=== PATIENT | female | born 1995 | race Caucasian/White ===

== ENCOUNTER 2017-06-21 02:20 | Emergency (ER) | payer BC ==
[~2017-06-21] VITALS: Ht 165.1 cm; Wt 63.6 kg
[~2017-06-21 02:20] MED LIST: IMPLANON68 MG; INDERAL 10MG10 MG PO; NO HOME MEDICATIONS; NORCO 325 MG-51 TAB PO; RITALIN10 MG PO
[2017-06-21 02:25] VITALS: BP 116/71; PULSE 102; TEMP 98.6
[2017-06-21] MEDS ORDERED: RITALIN 5MG5 MG/TAB PO (02:43)
[2017-06-21 03:09] LABS: TRICYCLIC ANTIDEPRESS URINE NEGATIVE
== END 2017-06-21 04:35 | disposition home or self-care (01) ==
LOC: COL.ER 02:20
PROVIDERS: Emergency Medicine
DX: F10.129 Alcohol abuse with intoxication, unspecified (principal); Y90.7 Blood alcohol level of 200-239 mg/100 ml
CPT/HCPCS: J7030

== ENCOUNTER 2019-03-29 23:59 | Inpatient (IN) | payer BC ==
[~2019-03-29] VITALS: Ht 157.5 cm; Wt 93.6 kg
[~2019-03-29 23:59] MED LIST changes: +RITALIN 5MG5 MG/TAB PO
[2019-03-30] VITALS (70 sets, daily range): BP systolic 97–140; BP diastolic 50–90; PULSE 63–133; TEMP 98.3–98.6
--- NOTE | 2019-03-30 | NUR ---
0005- Pt arrived on unit ambulatory escorted by significant other for scheduled induction. Pt changed into a gown. 0020- Pt denies any contractions, leaking of fluid, vaginal bleeding and reports normal movement. EFM and toco monitors placed. Vital signs WNL. Plan of care for labor induction reviewed. 0045- Consents reviewed and signed. 0110- IV started and labs obtained. 0130- Cytotec given per order. See EMAR for details.
[2019-03-30] MEDS ORDERED: PRENATAL (00:32)
[2019-03-30 01:56] LABS: BASO # 0.1 (0.0-0.2); BASO % 0.3 % (0.0-2.0); EOS # 0.1 (0.0-0.7); EOS % 0.7 % (0-4.0); GRAN # 11.1 (1.4-6.5); GRAN % 74.1 % (42.2-75.2); HEMOGLOBIN 11.7 g/dl (12.5-16.0); LYMPH # 2.7 (1.2-3.4); LYMPH % 18.1 % (20.0-51.0); MEAN CELL VOLUME 82 fl (80.0-100.0); MEAN CORPUSCULAR HEMOGLOBIN 28 pg (27.0-31.0); MEAN CORPUSCULAR HGB CONC 34 g/dl (33.0-37.0); MEAN PLATELET VOLUME 10.6 fl (7.4-10.4); MONO % 6.3 % (1.7-9.3); PLATELET COUNT 286 K/mm3 (130-400); RED BLOOD COUNT 4.24 M/mm3 (4.10-5.30); REDCELL DISTRIBUTION WIDTH-CV 13.9 % (11.5-14.5)
[2019-03-30 01:58] LABS: HEMATOCRIT 34.8 % (37.0-47.0)
--- NOTE | 2019-03-30 07:30 | NUR ---
Patient awake, RN at bedside to adjust monitors and review plan of care. Patient denies cramping or contractions, reports normal movement. Patient off monitors and up to bathroom.
--- NOTE | 2019-03-30 08:00 | NUR ---
Dr. Connor on unit, updated on patient assessment. Reviews FHR strip.
--- NOTE | 2019-03-30 08:10 | NUR ---
0810- Dr. Connor at bedside. Reviews FHR strip. Discussing plan of care for SVE and possible AROM. Patient agrees and denies questions. 0812- SVE per provider /. AROM by Dr. Connor for moderate amount of clear fluid. Pericare given, patient repositioned WL and updated on plan of care. Orders to start Pitocin at 0930 per protocol, patient may have epidural when desired. Call light in reach.
--- NOTE | 2019-03-30 11:55 | NUR ---
Dr. Connor at bedside. Reviews FHR strip and contraction pattern. SVE per provider 3-4//-2. Orders to continue Pitocin induction. Patient comfortable with epidural. Fregoso catheter placed per protocol. Patient repositioned WL and updated on plan of care.
--- NOTE | 2019-03-30 15:45 | NUR ---
1434 - late deceleration noted. Pt repositioned semi-fowlers, wedged left.
--- NOTE | 2019-03-30 17:55 | NUR ---
Dr. Connor at bedside, reviews FHR, no new orders at this time.
--- NOTE | 2019-03-30 19:52 | NUR ---
SVE complete and +2 station. Pt educated on pushing techniques, verbalized understanding. Pt positioned into footplates.
--- NOTE | 2019-03-30 20:48 | NUR ---
2000 - Initial push at this time. Pt pushing well with contractions. Fregoso catheter removed. 75 mL aleksandra urine. 2014 - Pt continues to push well with contractions. Late variable deceleration after push down to 90 bpm. Pt instructed not to push with next contraction. 2029 - Pt continues to push well with contractions. Continues to have recurrent late variable decelerations down to 90 bpm with spontaneous return to baseline. Dr. Connor called for delivery. 2043 - Dr. Connor gowned and gloved at perineum, nursery called to bedside. Pt continues to have late variable decelerations down to 90 bpm after pushes with spontaneous return to baseline. 2047 - Spontaneous vaginal delivery of viable infant girl. placed on mothers abdomen, care of infant assumed to Toby Hobbs RN. Cord clamped x [address] Connor, cut by FOB. Pitocin off. 2050 - Spontaneous delivery of intact placenta. Pitocin restarted at 333 mL/hr. Fundal massage started by this RN, firm and at umbilicus. Small amount of free flow noted with massage. 2099 - Second degree perineal laceration repaired by Dr. Connor. Fundus firm and at umbilicus, few, small clots with massage. 2114 - Straight cath by Dr. Connor. Pericare provided. New chux beneath patient. Ice pack to perineum. Pt positioned in bed for comfort. recovery started. See physician delivery note.
--- NOTE | 2019-03-30 23:30 | NUR ---
Pt able to lift and hold each leg off of bed for 5 seconds. Repositioned to sitting on edge of bed. Epidural catheter removed. Tip, smooth, blue, and intact. Pt able to ambulate to bathroom with stand by assistance. Once in bathroom patient states she feels like she is going to pass out and throw up. Additional staff called to bathroom. After a few minutes patient states she is feeling better. Pt unable to void. Moved to wheelchair and transferred to room 208 with belongings. Once in room patient states she feels much better. Assisted to bed and encouraged to rest for awhile. Educated patient to stay in bed and ask for assistance when using restroom.
[2019-03-31 04:22] VITALS: BP 118/61; PULSE 91; TEMP 97.7
[2019-03-31] MEDS ORDERED: MOTRIN 800800 MG/TAB PO (07:53)
[2019-03-31] MEDS ORDERED: PERCOCET 325 MG1 TA2 PO (07:53)
[2019-03-31 08:30] VITALS: BP 124/64; PULSE 100; TEMP 97.6
--- NOTE | 2019-03-31 08:30 | NUR ---
Rests in bed, alert. Request pain medication. Let her know that it is to soon for pain medication, but will bring it when time.
[2019-03-31 13:30] VITALS: BP 129/53; PULSE 86; TEMP 97.8
--- NOTE | 2019-03-31 15:00 | NUR ---
Rests in bed, alert. Family and friends visit.
[2019-03-31 18:00] VITALS: BP 106/48; PULSE 90; TEMP 98.3
--- NOTE | 2019-03-31 18:00 | NUR ---
Request pain medication. Two percocet 5/325 mg given as ordered.
[2019-03-31 21:00] VITALS: BP 113/56; PULSE 109; TEMP 98.3
[2019-04-01 07:00] VITALS: BP 102/56; PULSE 87; TEMP 97.6
--- NOTE | 2019-04-01 14:00 | NUR ---
Patient given script for percocet and motrin to have family member fill today before pharmacy closed.
[2019-04-01 16:27] VITALS: BP 101/55; PULSE 88; TEMP 98.3
[2019-04-01 19:45] VITALS: BP 100/65; PULSE 100; TEMP 98.3
== END 2019-04-01 20:25 | disposition home or self-care (01) | DRG 807 ==
LOC: OB 23:59 → LDR 23:59 → OB 03-30 23:40
PROVIDERS: ADMIT Obstetrics & Gynecology
PROC: 3E0P7GC Introduction of Other Therapeutic Substance into Female Reproductive, Via Natural or Artificial Opening (ICD-10-PCS; 2019-03-29)
PROC: 10E0XZZ Delivery of Products of Conception, External Approach (ICD-10-PCS; principal; 2019-03-30)
PROC: 10907ZC Drainage of Amniotic Fluid, Therapeutic from Products of Conception, Via Natural or Artificial Opening (ICD-10-PCS; 2019-03-30)
PROC: 3E033VJ Introduction of Other Hormone into Peripheral Vein, Percutaneous Approach (ICD-10-PCS; 2019-03-30)
DX: O70.1 Second degree perineal laceration during delivery (principal); Z37.0 Single live birth; Z3A.39 39 weeks gestation of pregnancy
CPT/HCPCS: J2590; J7120

== ENCOUNTER 2019-04-14 09:22 | Emergency (ER) | payer BC ==
[~2019-04-14] VITALS: Ht 157.5 cm; Wt 68.2 kg
[~2019-04-14 09:22] MED LIST changes: +MOTRIN 800800 MG/TAB PO; +PERCOCET 325 MG1 TA2 PO; +PRENATAL PO
[2019-04-14 09:31] VITALS: TEMP 101.5
[2019-04-14 10:26] LABS: BASO % 0.3 % (0.0-2.0); EOS # 0.1 (0.0-0.7); EOS % 0.4 % (0-4.0); GRAN # 11.3 (1.4-6.5); GRAN % 85.4 % (42.2-75.2); HEMOGLOBIN 11.4 g/dl (12.5-16.0); LYMPH # 1.3 (1.2-3.4); LYMPH % 9.6 % (20.0-51.0); MEAN CELL VOLUME 81 fl (80.0-100.0); MEAN CORPUSCULAR HEMOGLOBIN 27 pg (27.0-31.0); MEAN CORPUSCULAR HGB CONC 33 g/dl (33.0-37.0); MEAN PLATELET VOLUME 9.5 fl (7.4-10.4); MONO # 0.5 (0.1-0.6); MONO % 3.9 % (1.7-9.3); PLATELET COUNT 393 K/mm3 (130-400); RED BLOOD COUNT 4.21 M/mm3 (4.10-5.30); REDCELL DISTRIBUTION WIDTH-CV 13.6 % (11.5-14.5)
[2019-04-14 10:30] LABS: BILIRUBIN,TOTAL 0.8 mg/dL (0.0-1.0); C-REACTIVE PROTEIN 4.8 mg/dL (0.0-0.9); CALCIUM 8.7 mg/dL (8.4-10.2); CREATININE, serum 0.64 (0.52-1.25); POTASSIUM 3.3 mmol/L (3.4-5.0); TOTAL PROTEIN 7.2 gm/dL (6.4-8.2)
[2019-04-14 10:35] LABS: HEMATOCRIT 34.1 % (37.0-47.0)
[2019-04-14 10:57] LABS: COLLECTION METHOD CLEAN CATCH
[2019-04-14 11:07] LABS: PH 6 (5-8); SQUAMOUS EPITHELIAL None Seen /hpf; URINE APPEARANCE Clear; URINE BACTERIA Rare /hpf; URINE BILIRUBIN Negative (NEGATIVE); URINE BLOOD Negative (NEGATIVE); URINE COLOR Straw; URINE GLUCOSE Negative (NEGATIVE); URINE KETONE Negative (NEGATIVE); URINE LEUKOCYTE ESTERASE Negative (NEGATIVE); URINE NITRATE Negative (NEGATIVE); URINE PROTEIN(semi-quant) Negative (NEGATIVE); URINE RBC 0-2 /hpf; URINE UROBILINOGEN Negative (NEGATIVE)
[2019-04-14 11:08] LABS: MUCOUS Present /lpf
[2019-04-14] MEDS ORDERED: AMOXICILLIN 8751 TAB PO (12:38)
[2019-04-14 13:34] VITALS: BP 119/84; PULSE 73
== END 2019-04-14 13:34 | disposition home or self-care (01) ==
LOC: COL.ER 09:22
PROVIDERS: Emergency Medicine
DX: O90.89 Other complications of the puerperium, not elsewhere classified (principal); R05 Cough; Z79.1 Long term (current) use of non-steroidal anti-inflammatories (NSAID)
CPT/HCPCS: J7030

== ENCOUNTER 2019-05-31 18:41 | Emergency (ER) | payer BC ==
[~2019-05-31] VITALS: Ht 154.9 cm; Wt 77.3 kg
[~2019-05-31 18:41] MED LIST changes: +AMOXICILLIN 8751 TAB PO
[2019-05-31 20:19] LABS: BASO % 0.2 % (0.0-2.0); EOS % 0.1 % (0-4.0); GRAN # 14.9 (1.4-6.5); GRAN % 89.2 % (42.2-75.2); HEMATOCRIT 37.3 % (37.0-47.0); HEMOGLOBIN 12.2 g/dl (12.5-16.0); LYMPH % 5.9 % (20.0-51.0); MEAN CELL VOLUME 79 fl (80.0-100.0); MEAN CORPUSCULAR HEMOGLOBIN 26 pg (27.0-31.0); MEAN CORPUSCULAR HGB CONC 33 g/dl (33.0-37.0); MEAN PLATELET VOLUME 10.1 fl (7.4-10.4); MONO # 0.7 (0.1-0.6); MONO % 4.1 % (1.7-9.3); PLATELET COUNT 299 K/mm3 (130-400); RED BLOOD COUNT 4.71 M/mm3 (4.10-5.30)
[2019-05-31 20:23] LABS: ALBUMIN 4.5 gm/dL (3.5-5.0); BILIRUBIN,TOTAL 0.6 mg/dL (0.0-1.0); C-REACTIVE PROTEIN 1.3 mg/dL (0.0-0.9); CALCIUM 8.9 mg/dL (8.4-10.2); CREATININE, serum 0.6 (0.52-1.25); POTASSIUM 3.6 mmol/L (3.4-5.0); TOTAL PROTEIN 7.7 gm/dL (6.4-8.2)
[2019-05-31] MEDS ORDERED: CLEOCIN HC150 MG/CAP PO (22:31)
[2019-05-31 23:14] VITALS: BP 98/68; PULSE 88; TEMP 98.3
== END 2019-05-31 23:20 | disposition home or self-care (01) ==
LOC: COL.ER 18:41
PROVIDERS: Physician Assistant
DX: N61.0 Mastitis without abscess (principal); Z79.1 Long term (current) use of non-steroidal anti-inflammatories (NSAID)
CPT/HCPCS: J1885; J2405; J7030